=== PATIENT | male | born 1970 | race Caucasian/White ===

== ENCOUNTER 2020-12-22 23:47 | Inpatient (IN) | payer OTHER ==
[2020-12-23] MEDS ORDERED: Multivitamins, Adult 10 ML, Thiamine HCl 100 MG, Folic Acid 1 MG in Dextrose 5 %-0.45 %... IV SCH (01:00)
[2020-12-23] MEDS ORDERED: Lorazepam 2 MG/ML VIAL ONE (01:07)
[2020-12-23 01:25] LABS: Mean Corpuscular Volume 83.5 fL (78.0-98.0)
[2020-12-23 01:36] LABS: #Basophils 0.1 thou/uL (0.0-0.2); #Monocytes 0.6 thou/uL (0.11-0.59); #Neutrophils 5.4 thou/uL (1.40-6.50); %Basophils 0.8 % (0.0-1.0); %Eosinophils 0.3 % (0.0-10.0); %Lymphocytes 24.5 % (21.0-51.0); %Monocytes 7.9 % (0.0-10.0); %Neutrophils 66.6 % (42.0-75.0); Hemoglobin 12.8 g/dL (14.0-18.0); Mean Corpuscular HGB CONC 32.7 g/dL (32.0-36.0); Mean Corpuscular Hemoglobin 27.3 pg (27.0-31.0); Mean Platelet Volume 9.8 fL (7.4-10.4); Platelet Count 89 thou/uL (130-400); Platelet Morphology Comment Appears Decreased; RBC Distribution Width 18.9 % (11.5-14.5); Red Blood Cell (RBC) Count 4.67 mill/uL (4.70-6.10); White Blood Cell (WBC) Count 8.1 thou/uL (4.8-10.8)
[2020-12-23] MEDS ORDERED: Morphine 4 MG/ML VIAL ONE (01:41)
[2020-12-23] MEDS ORDERED: Ondansetron PF 4 MG/2 ML Vial ONE ×2 (01:41→09:55)
[2020-12-23] MEDS ORDERED: Ondansetron PF 4 MG/2 ML Vial IVP PRN ×2 (01:41→06:19)
[2020-12-23] MEDS ORDERED: Dextrose 50% Abboject 50 ML SYRINGE SLOW IVP PRN ×2 (01:41→06:19)
[2020-12-23] MEDS ORDERED: hydrALAZINE 20 MG/ML VIAL SLOW IVP PRN ×2 (01:41→06:19)
[2020-12-23] MEDS ORDERED: Dextrose 5% in Water 1,000 ML IV PRN ×2 (01:41→06:19)
[2020-12-23 01:43] LABS: ALT (SGPT) 48 U/L (8-55); AST (SGOT) 70 U/L (5-34); Albumin 3.8 g/dL (3.5-5.0); Alkaline Phosphatase 125 U/L (40-110); Anion Gap 19 mmol/L (10-20); BUN (Urea Nitrogen) 14 mg/dL (8.4-25.7); Bilirubin, Total 0.5 mg/dL (0.2-1.2); Calc. Creatinine Clearance 0 mL/min (70-130); Calcium 7.9 mg/dL (7.8-10.44); Carbon Dioxide 19 mmol/L (22-29); Chloride 112 mmol/L (98-107); Globulin 2.9 g/dL (2.4-3.5); Glucose 126 mg/dL (70-105); Protein, Total 6.7 g/dL (6.0-8.3); Sodium 146 mmol/L (136-145)
[2020-12-23] MEDS ORDERED: Morphine 2 MG/ML VIAL SLOW IVP PRN ×2 (01:47→06:21)
[2020-12-23] MEDS ORDERED: traMADol HCl 50 MG TAB PO PRN ×2 (01:47→06:20)
[2020-12-23] MEDS ORDERED: Ampicillin/Sulbactam 3 GM in Sodium Chloride 0.9% 100 ML IVPB SCH (02:00)
[2020-12-23] MEDS ORDERED: Multivitamins, Adult 10 ML, Folic Acid 1 MG, Thiamine HCl 100 MG in Dextrose 5 %-0.45 %... IV SCH (02:00)
[2020-12-23] MEDS ORDERED: Lidocaine 1% (PF) 30 ML VIAL ONE (02:36)
[2020-12-23] MEDS ORDERED: Boostrix 0.5 ML (Tdap) VIAL ONE (03:19)
[2020-12-23 03:51] LABS: SARS-CoV-2 NAA Rapid Test Not Detected (NotDetected)
[2020-12-23] MEDS ORDERED: Ibuprofen 600 MG TAB PO SCH ×3 (06:00→14:00)
[2020-12-23] MEDS ORDERED: traMADol HCl 50 MG TAB PO SCH ×2 (06:00→06:30)
[2020-12-23] MEDS ORDERED: Oxazepam 10 MG CAP PO SCH ×2 (06:00→06:30)
[2020-12-23 06:21] LABS: #Monocytes 0.3 thou/uL (0.11-0.59); #Neutrophils 1.9 thou/uL (1.40-6.50); %Basophils 0.8 % (0.0-1.0); %Eosinophils 0.5 % (0.0-10.0); %Monocytes 10.4 % (0.0-10.0); %Neutrophils 57.4 % (42.0-75.0); Hemoglobin 11.2 g/dL (14.0-18.0); Mean Corpuscular HGB CONC 33.3 g/dL (32.0-36.0); Mean Corpuscular Hemoglobin 27.3 pg (27.0-31.0); Mean Corpuscular Volume 82.1 fL (78.0-98.0); Mean Platelet Volume 9.4 fL (7.4-10.4); Platelet Count 65 thou/uL (130-400); RBC Distribution Width 18.4 % (11.5-14.5); Red Blood Cell (RBC) Count 4.11 mill/uL (4.70-6.10); White Blood Cell (WBC) Count 3.3 thou/uL (4.8-10.8)
[2020-12-23 06:26] LABS: INR-International Normal Ratio 1.2; PTT 25.7 sec (22.9-36.1); Prothrombin Time 15.6 sec (12.0-14.7)
[2020-12-23 06:34] VITALS: BMI 34.5
[2020-12-23 06:39] LABS: ALT (SGPT) 41 U/L (8-55); AST (SGOT) 55 U/L (5-34); Albumin 3.4 g/dL (3.5-5.0); Alkaline Phosphatase 97 U/L (40-110); Anion Gap 14 mmol/L (10-20); BUN (Urea Nitrogen) 12 mg/dL (8.4-25.7); Bilirubin, Total 0.5 mg/dL (0.2-1.2); Calc. Creatinine Clearance 199 mL/min (70-130); Calcium 7.3 mg/dL (7.8-10.44); Carbon Dioxide 22 mmol/L (22-29); Chloride 111 mmol/L (98-107); Globulin 2.6 g/dL (2.4-3.5); Glucose 165 mg/dL (70-105); Potassium 3.3 mmol/L (3.5-5.1); Sodium 144 mmol/L (136-145)
[2020-12-23] MEDS: Folic Acid 1 MG TAB PO SCH (08:53)
[2020-12-23] MEDS: Thiamine 100 MG TAB PO SCH (08:54)
[2020-12-23] MEDS: Gabapentin 100 MG CAP PO SCH ×3 (08:54→21:08)
[2020-12-23] MEDS ORDERED: Pantoprazole 40 MG VIAL IVP SCH ×2 (09:00)
[2020-12-23] MEDS ORDERED: Famotidine/PF 20 mg/2ml Vial SLOW IVP SCH (09:00)
[2020-12-23] MEDS ORDERED: Thiamine 100 MG TAB PO SCH (09:00)
[2020-12-23] MEDS ORDERED: Folic Acid 1 MG TAB PO SCH (09:00)
[2020-12-23] MEDS ORDERED: Gabapentin 100 MG CAP PO SCH (09:00)
[2020-12-23] MEDS ORDERED: CEFAZOLIN 2 GM in Premix Bag 1 BAG IVPB SCH (09:00)
[2020-12-23] MEDS ORDERED: Fentanyl 100 MCG/2 ML VIAL ONE (09:42)
[2020-12-23] MEDS ORDERED: Midazolam HCl 2 mg/2 ml Vial ONE (09:42)
[2020-12-23] MEDS ORDERED: Lidocaine 1% PF 5 ML VIAL ONE (09:55)
[2020-12-23] MEDS ORDERED: ePHEDrine 50 MG/ML VIAL ONE ×2 (09:55)
[2020-12-23] MEDS ORDERED: Rocuronium Bromide 10 MG/ML (10ML VIAL) ONE (09:55)
[2020-12-23] MEDS ORDERED: Ketorolac Tromethamine 30 MG/ML VIAL ONE (09:55)
[2020-12-23] MEDS ORDERED: Dexamethasone 20 MG/5 ML VIAL ONE (09:55)
[2020-12-23] MEDS ORDERED: PROPOFOL 200 MG/20 ML VIAL ONE (09:55)
[2020-12-23] MEDS ORDERED: HYDROmorphone 2 MG/ML VIAL ONE (11:13)
[2020-12-23] MEDS ORDERED: SUGAMMADEX SODIUM 200 MG/2 ML VIAL ONE (11:43)
[2020-12-23] MEDS: traMADol HCl 50 MG TAB PO SCH ×2 (12:00→18:32)
[2020-12-23] MEDS: Oxazepam 10 MG CAP PO SCH ×2 (12:00→18:34)
[2020-12-23] MEDS ORDERED: Ondansetron HCl/PF 4 MG/2 ML Vial IVP PRN (12:17)
[2020-12-23] MEDS ORDERED: Promethazine HCl 25 MG/ML VIAL SLOW IVP PRN (12:17)
[2020-12-23] MEDS ORDERED: Promethazine HCl 25 MG/ML VIAL IM PRN (12:17)
[2020-12-23] MEDS ORDERED: HYDROmorphone 2 MG/ML VIAL SLOW IVP PRN (12:17)
[2020-12-23] MEDS ORDERED: Potassium Phosphate 30 MMOL in Sodium Chloride 0.9% 500 ML IVPB SCH (13:45)
[2020-12-23] MEDS: Acetaminophen 325 MG TAB PO SCH ×2 (14:46→21:08)
[2020-12-23] MEDS: CEFAZOLIN 2 GM in Premix Bag 1 BAG IVPB SCH (18:28)
[2020-12-23] MEDS: Ibuprofen 600 MG TAB PO SCH (18:33)
[2020-12-23 19:54] LABS: Bilirubin Negative (Negative); Blood, Urine Trace (Negative); Glucose, Urine (Dipstick) 500 mg/dL (Negative); Ketone, Urine 40 mg/dL (Negative); Leukocyte Negative (Negative); Nitrite Negative (Negative); Protein, Urine (Dipstick) Negative (Neg-Trace)
[2020-12-23 19:55] LABS: Clarity Hazy (Clear)
[2020-12-23 19:56] LABS: Specific Gravity, Urine 1.029 (1.002-1.036)
[2020-12-23 20:09] LABS: Bacteria/HPF None Seen HPF (None Seen); RBC/HPF 0-3 HPF (0-3); Squamous Epithelial 0-3 HPF (0-3)
[2020-12-23 20:10] LABS: Urine Culture Reflex Yes Yes
[2020-12-24] MEDS: Oxazepam 10 MG CAP PO SCH ×5 (00:18→23:40)
[2020-12-24] MEDS: Ibuprofen 600 MG TAB PO SCH ×2 (00:18→06:19)
[2020-12-24] MEDS: traMADol HCl 50 MG TAB PO SCH ×5 (00:19→23:40)
[2020-12-24] MEDS: CEFAZOLIN 2 GM in Premix Bag 1 BAG IVPB SCH (00:20)
[2020-12-24 06:00] LABS: #Lymphocytes 0.4 thou/uL (1.20-3.40); #Monocytes 0.2 thou/uL (0.11-0.59); #Neutrophils 1.8 thou/uL (1.40-6.50); %Eosinophils 0.2 % (0.0-10.0); %Lymphocytes 17.9 % (21.0-51.0); %Monocytes 9.4 % (0.0-10.0); %Neutrophils 72.5 % (42.0-75.0); Hemoglobin 10.5 g/dL (14.0-18.0); Mean Corpuscular HGB CONC 32.5 g/dL (32.0-36.0); Mean Corpuscular Hemoglobin 27.2 pg (27.0-31.0); Mean Corpuscular Volume 83.9 fL (78.0-98.0); Mean Platelet Volume 9.7 fL (7.4-10.4); Platelet Count 50 thou/uL (130-400); RBC Distribution Width 18.7 % (11.5-14.5); Red Blood Cell (RBC) Count 3.86 mill/uL (4.70-6.10); White Blood Cell (WBC) Count 2.4 thou/uL (4.8-10.8)
[2020-12-24] MEDS: Acetaminophen 325 MG TAB PO SCH ×3 (06:17→21:37)
[2020-12-24 06:19] LABS: Anion Gap 10 mmol/L (10-20); BUN (Urea Nitrogen) 11 mg/dL (8.4-25.7); Calc. Creatinine Clearance 179 mL/min (70-130); Calcium 7.1 mg/dL (7.8-10.44); Carbon Dioxide 26 mmol/L (22-29); Chloride 105 mmol/L (98-107); Glucose 293 mg/dL (70-105); Potassium 4.1 mmol/L (3.5-5.1); Sodium 137 mmol/L (136-145)
[2020-12-24 06:23] LABS: Phosphorus 1.8 mg/dL (2.3-4.7)
[2020-12-24] MEDS ORDERED: traMADol HCl 50 MG TAB PO PRN ×3 (07:29→09:22)
[2020-12-24] MEDS ORDERED: Sodium Phosphate 30 MMOL in Sodium Chloride 0.9% 250 ML 250 ML IVPB SCH (07:30)
[2020-12-24] MEDS ORDERED: traMADol HCl 50 MG TAB PO SCH (08:00)
[2020-12-24] MEDS ORDERED: Lisinopril 20 MG TAB PO SCH (09:00)
[2020-12-24] MEDS: Gabapentin 100 MG CAP PO SCH ×4 (09:00→21:36)
[2020-12-24] MEDS: Thiamine 100 MG TAB PO SCH (09:01)
[2020-12-24] MEDS: Folic Acid 1 MG TAB PO SCH (09:01)
[2020-12-24] MEDS: Lisinopril 20 MG TAB PO SCH ×2 (09:01→21:37)
[2020-12-24] MEDS ORDERED: Cyclobenzaprine 10 MG TAB PO PRN (09:24)
[2020-12-24] MEDS ORDERED: Cyclobenzaprine 10 MG TAB PO SCH (21:00)
[2020-12-25] MEDS: traMADol HCl 50 MG TAB PO SCH ×4 (06:02→23:05)
[2020-12-25] MEDS: Acetaminophen 325 MG TAB PO SCH ×3 (06:03→23:06)
[2020-12-25] MEDS: Oxazepam 10 MG CAP PO SCH ×4 (06:05→23:06)
[2020-12-25 06:11] LABS: #Lymphocytes 0.8 thou/uL (1.20-3.40); #Monocytes 0.3 thou/uL (0.11-0.59); #Neutrophils 1.1 thou/uL (1.40-6.50); %Basophils 0.4 % (0.0-1.0); %Eosinophils 0.9 % (0.0-10.0); %Lymphocytes 35.3 % (21.0-51.0); %Monocytes 13.3 % (0.0-10.0); %Neutrophils 50.1 % (42.0-75.0); Hemoglobin 9.7 g/dL (14.0-18.0); Mean Corpuscular HGB CONC 32.4 g/dL (32.0-36.0); Mean Corpuscular Hemoglobin 27.6 pg (27.0-31.0); Mean Platelet Volume 9.4 fL (7.4-10.4); Platelet Count 54 thou/uL (130-400); RBC Distribution Width 18.8 % (11.5-14.5); Red Blood Cell (RBC) Count 3.52 mill/uL (4.70-6.10); White Blood Cell (WBC) Count 2.2 thou/uL (4.8-10.8)
[2020-12-25] MEDS ORDERED: Cyclobenzaprine 10 MG TAB PO PRN (09:00)
[2020-12-25] MEDS: Lisinopril 20 MG TAB PO SCH ×2 (09:08→20:11)
[2020-12-25] MEDS: Gabapentin 100 MG CAP PO SCH ×3 (09:08→20:11)
[2020-12-25] MEDS: Thiamine 100 MG TAB PO SCH (09:09)
[2020-12-25] MEDS: Folic Acid 1 MG TAB PO SCH (09:09)
[2020-12-25] MEDS: DULoxetine 30 MG CAP PO SCH (09:09)
[2020-12-26] MEDS: Acetaminophen 325 MG TAB PO SCH ×2 (05:38→14:49)
[2020-12-26] MEDS: traMADol HCl 50 MG TAB PO SCH ×3 (05:38→17:35)
[2020-12-26] MEDS: Oxazepam 10 MG CAP PO SCH ×3 (05:39→17:36)
[2020-12-26] MEDS ORDERED: Ferrous Sulfate 325 MG TAB PO SCH (08:00)
[2020-12-26] MEDS ORDERED: Ascorbic Acid 500 mg Chewable Tablet PO SCH (08:00)
[2020-12-26] MEDS: Lisinopril 20 MG TAB PO SCH (08:04)
[2020-12-26] MEDS: DULoxetine 30 MG CAP PO SCH (08:04)
[2020-12-26] MEDS: Gabapentin 100 MG CAP PO SCH ×2 (08:04→14:48)
[2020-12-26] MEDS: Folic Acid 1 MG TAB PO SCH (08:05)
[2020-12-26] MEDS: Thiamine 100 MG TAB PO SCH (08:05)
[2020-12-26] MEDS ORDERED: Gabapentin 300 MG CAP PO SCH ×2 (15:00→21:00)
[2020-12-26] MEDS ORDERED: Gabapentin 100 MG CAP PO SCH (15:15)
[2020-12-26 15:43] VITALS: BP 136/79; TEMP 98.2
== END 2020-12-26 18:30 | disposition home or self-care (01) | DRG 493 ==
LOC: ERS 23:47 → SURG B 12-23 01:54 → ERS 12-23 04:57
PROVIDERS: ADMIT Specialist; ATTEND Specialist
PROC: 0QSG04Z Reposition Right Tibia with Internal Fixation Device, Open Approach (ICD-10-PCS; principal; 2020-12-23)
DX: S82.191A Other fracture of upper end of right tibia, initial encounter for closed fracture (principal); S02.40DA Maxillary fracture, left side, initial encounter for closed fracture; S02.40FA Zygomatic fracture, left side, initial encounter for closed fracture; Z20.822 Contact with and (suspected) exposure to COVID-19; I10 Essential (primary) hypertension; F10.229 Alcohol dependence with intoxication, unspecified; F17.210 Nicotine dependence, cigarettes, uncomplicated; Y04.0XXA Assault by unarmed brawl or fight, initial encounter; K21.9 Gastro-esophageal reflux disease without esophagitis; J34.2 Deviated nasal septum; K01.1 Impacted teeth; D69.6 Thrombocytopenia, unspecified; D72.819 Decreased white blood cell count, unspecified; Z79.899 Other long term (current) drug therapy
CPT/HCPCS: 12011; 29505; 36415; 70450; 70486; 71045; 76000; 80048; 80053; 81001; 83735; 84100; 85025; 85610; 85730; 86850; 86900; 86901; 87086; 90471; 90715; 93005; 96365; 96366; 96368; 96374; 96375; C1713; G0390; J0295; J0690; J1100; J1170; J1885; J2001; J2060; J2250; J2270; J2405; J2704; J3010; J3411; J3490; J7030; J7042; J7050; U0002

== ENCOUNTER 2021-03-23 19:22 | Inpatient (IN) | payer OTHER ==
[~2021-03-23 19:22] MED LIST: Iopamidol-370 76% 500 ML 1 ML ONE
[2021-03-23] MEDS ORDERED: Pantoprazole 40 MG VIAL ONE (19:59)
[2021-03-23] MEDS ORDERED: Octreotide Acetate 50 MCG/ML AMP ONE (19:59)
[2021-03-23] MEDS ORDERED: Octreotide Acetate 1,250 MCG in Sodium Chloride 0.9% 250 ML 250 ML IVPB SCH (20:30)
[2021-03-23 20:51] LABS: PTT 25.1 sec (22.9-36.1); Prothrombin Time 13.7 sec (12.0-14.7)
[2021-03-23 21:01] LABS: Acetaminophen Less than 6.0 mcg/mL (10.0-30.0); Alcohol 303 mg/dL (Less than 10); Salicylate Less than 8.0 mg/dL (15.0-30.0)
[2021-03-23 21:02] LABS: ALT (SGPT) 33 U/L (8-55); AST (SGOT) 39 U/L (5-34); Albumin 4.2 g/dL (3.5-5.0); Alkaline Phosphatase 238 U/L (40-110); Anion Gap 18 mmol/L (10-20); BUN (Urea Nitrogen) 10 mg/dL (8.4-25.7); Bilirubin, Total 0.4 mg/dL (0.2-1.2); Calc. Creatinine Clearance 0 mL/min (70-130); Calcium 8.1 mg/dL (7.8-10.44); Carbon Dioxide 20 mmol/L (22-29); Chloride 108 mmol/L (98-107); Globulin 3.2 g/dL (2.4-3.5); Glucose 111 mg/dL (70-105); Lipase 91 U/L (8-78); Potassium 3.6 mmol/L (3.5-5.1); Protein, Total 7.4 g/dL (6.0-8.3); Sodium 142 mmol/L (136-145)
[2021-03-23 21:07] LABS: #Eosinphils 0.1 thou/uL (0.0-0.7); #Lymphocytes 2.5 thou/uL (1.20-3.40); #Monocytes 0.4 thou/uL (0.11-0.59); #Neutrophils 2.4 thou/uL (1.40-6.50); %Basophils 0.7 % (0.0-1.0); %Eosinophils 1.6 % (0.0-10.0); %Lymphocytes 47.1 % (21.0-51.0); %Monocytes 6.6 % (0.0-10.0); %Neutrophils 43.9 % (42.0-75.0); Mean Corpuscular HGB CONC 33.3 g/dL (32.0-36.0); Mean Corpuscular Hemoglobin 26.9 pg (27.0-31.0); Mean Corpuscular Volume 80.9 fL (78.0-98.0); Mean Platelet Volume 9.1 fL (7.4-10.4); Platelet Count 108 thou/uL (130-400); Platelet Morphology Comment Appears Decreased; RBC Distribution Width 17.1 % (11.5-14.5); Red Blood Cell (RBC) Count 5.19 mill/uL (4.70-6.10); White Blood Cell (WBC) Count 5.4 thou/uL (4.8-10.8)
[2021-03-23 21:28] LABS: Bilirubin Negative (Negative); Blood, Urine Negative (Negative); Clarity Clear (Clear); Glucose, Urine (Dipstick) Normal (Negative); Ketone, Urine Negative (Negative); Leukocyte Negative Leu/uL (Negative); Nitrite Negative (Negative); Protein, Urine (Dipstick) Negative (Neg-Trace); Specific Gravity, Urine 1.007 (1.002-1.036); Urobilinogen Normal mg/dL (Less than 2)
[2021-03-23 21:40] LABS: Amphetamine Not Detected (NotDetected); Barbiturates Screen Not Detected (NotDetected); Benzodiazepine Screen Not Detected (NotDetected); Cocaine Metabolite Screen Not Detected (NotDetected); Medtox Control Line Valid? VALID (VALID); Medtox Reader # READER 1; Methadone Not Detected (NotDetected); Methamphetamine Not Detected (NotDetected); Opiate Screen Not Detected (NotDetected); Oxycodone Screen Not Detected (NotDetected); Phencyclidine (PCP) Not Detected (NotDetected); THC/Cannabinoid Screen Not Detected (NotDetected); Tricyclic Screen Not Detected (NotDetected)
[2021-03-23] MEDS ORDERED: Multivitamins, Adult 10 ML, Thiamine HCl 100 MG, Folic Acid 1 MG in Dextrose 5 %-0.45 %... IV SCH (21:45)
[2021-03-23] MEDS ORDERED: Ondansetron ODT 4 MG TAB PO PRN (22:30)
[2021-03-23] MEDS ORDERED: Acetaminophen 325 MG TAB PO PRN (22:30)
[2021-03-23] MEDS ORDERED: Ondansetron PF 4 MG/2 ML Vial IVP PRN (22:30)
[2021-03-23] MEDS ORDERED: Diazepam 5 MG TAB PO PRN (22:39)
[2021-03-23] MEDS ORDERED: Diazepam 5 MG TAB PO SCH (22:45)
[2021-03-23 23:03] LABS: SARS-CoV-2 NAA Rapid Test Not Detected (NotDetected)
[2021-03-23 23:25] LABS: Anion Gap 19 mmol/L (10-20); BUN (Urea Nitrogen) 9 mg/dL (8.4-25.7); Calc. Creatinine Clearance 0 mL/min (70-130); Carbon Dioxide 19 mmol/L (22-29); Chloride 108 mmol/L (98-107); Glucose 100 mg/dL (70-105); Potassium 3.9 mmol/L (3.5-5.1); Sodium 142 mmol/L (136-145)
[2021-03-24 00:55] LABS: Hemoglobin 13.5 g/dL (14.0-18.0)
[2021-03-24 01:06] VITALS: BMI 34.5
[2021-03-24 05:05] LABS: Anisocytosis SLIGHT = 6-15 cells (100X) (0-5/hpf); Band 1 % (5-11); Eosinophils 1 % (0-10); Hemoglobin 12.7 g/dL (14.0-18.0); Lymphocytes 46 % (21-51); MDiff Complete? YES; Mean Corpuscular HGB CONC 32.7 g/dL (32.0-36.0); Mean Corpuscular Hemoglobin 26.7 pg (27.0-31.0); Mean Corpuscular Volume 81.4 fL (78.0-98.0); Monocytes 10 % (0-10); Neutrophil 42 % (42-75); Platelet Count 91 thou/uL (130-400); Platelet Morphology Comment Appears Decreased; RBC Distribution Width 17.4 % (11.5-14.5); Red Blood Cell (RBC) Count 4.77 mill/uL (4.70-6.10); White Blood Cell (WBC) Count 3.9 thou/uL (4.8-10.8)
[2021-03-24] MEDS: Magnesium Oxide 400 MG TAB PO SCH (08:42)
[2021-03-24] MEDS: Pantoprazole 40 MG VIAL IVP SCH ×2 (08:42→21:02)
[2021-03-24] MEDS: Diazepam 5 MG TAB PO PRN (08:53)
[2021-03-24] MEDS ORDERED: Thiamine 100 MG TAB PO SCH (09:00)
[2021-03-24] MEDS ORDERED: Folic Acid 1 MG TAB PO SCH (09:00)
[2021-03-24] MEDS ORDERED: Multivitamin W/ Minerals 1 TAB PO SCH (09:00)
[2021-03-24] MEDS ORDERED: Lorazepam 2 MG/ML VIAL SLOW IVP SCH (11:45)
[2021-03-24] MEDS: Multivitamins, Adult 10 ML, Folic Acid 1 MG, Thiamine HCl 100 MG in Dextrose 5 %-0.45 %... IV SCH (12:55)
[2021-03-24] MEDS: cefTRIAXone\\ROCEPHIN 1 GM in Sodium Chloride 0.9% 100 ML IVPB SCH (12:55)
[2021-03-24] MEDS ORDERED: Amlodipine 5 MG TAB PO SCH (16:30)
[2021-03-24] MEDS: hydrALAZINE 20 MG/ML VIAL SLOW IVP PRN (21:01)
[2021-03-25 03:52] LABS: #Eosinphils 0.1 thou/uL (0.0-0.7); #Monocytes 0.3 thou/uL (0.11-0.59); %Basophils 0.8 % (0.0-1.0); %Eosinophils 4.2 % (0.0-10.0); %Lymphocytes 43.4 % (21.0-51.0); %Monocytes 10.8 % (0.0-10.0); %Neutrophils 40.9 % (42.0-75.0); Hemoglobin 13.1 g/dL (14.0-18.0); Mean Corpuscular HGB CONC 32.2 g/dL (32.0-36.0); Mean Corpuscular Hemoglobin 26.2 pg (27.0-31.0); Mean Corpuscular Volume 81.5 fL (78.0-98.0); Platelet Count 77 thou/uL (130-400); RBC Distribution Width 17.2 % (11.5-14.5); Red Blood Cell (RBC) Count 4.98 mill/uL (4.70-6.10); White Blood Cell (WBC) Count 2.4 thou/uL (4.8-10.8)
[2021-03-25 04:22] LABS: ALT (SGPT) 36 U/L (8-55); AST (SGOT) 37 U/L (5-34); Albumin 3.7 g/dL (3.5-5.0); Alkaline Phosphatase 172 U/L (40-110); Anion Gap 10 mmol/L (10-20); BUN (Urea Nitrogen) 6 mg/dL (8.4-25.7); Bilirubin, Total 0.9 mg/dL (0.2-1.2); Calc. Creatinine Clearance 175 mL/min (70-130); Calcium 8.9 mg/dL (7.8-10.44); Carbon Dioxide 26 mmol/L (22-29); Chloride 103 mmol/L (98-107); Globulin 3.1 g/dL (2.4-3.5); Glucose 150 mg/dL (70-105); Magnesium 1.8 mg/dL (1.6-2.6); Potassium 3.4 mmol/L (3.5-5.1); Protein, Total 6.8 g/dL (6.0-8.3); Sodium 136 mmol/L (136-145)
[2021-03-25] MEDS: Metoprolol Tartrate 25 MG TAB PO SCH ×3 (04:49→20:20)
[2021-03-25] MEDS ORDERED: PROPOFOL 200 MG/20 ML VIAL ONE (09:10)
[2021-03-25] MEDS ORDERED: Ondansetron HCl/PF 4 MG/2 ML Vial IVP PRN (09:32)
[2021-03-25] MEDS: Amlodipine 5 MG TAB PO SCH (10:08)
[2021-03-25] MEDS: Magnesium Oxide 400 MG TAB PO SCH (10:09)
[2021-03-25] MEDS: Pantoprazole 40 MG VIAL IVP SCH (10:10)
[2021-03-25] MEDS: Multivitamins, Adult 10 ML, Folic Acid 1 MG, Thiamine HCl 100 MG in Dextrose 5 %-0.45 %... IV SCH (10:33)
[2021-03-25] MEDS: cefTRIAXone\\ROCEPHIN 1 GM in Sodium Chloride 0.9% 100 ML IVPB SCH (11:28)
[2021-03-25] MEDS: Potassium Chloride 20 MEQ in Premix Bag 1 BAG IVPB SCH ×2 (11:28→14:23)
[2021-03-25] MEDS: hydrALAZINE 20 MG/ML VIAL SLOW IVP PRN (14:22)
[2021-03-25] MEDS: Diazepam 5 MG TAB PO PRN (17:37)
[2021-03-25] MEDS ORDERED: Nadolol 40 MG TAB PO SCH (21:00)
[2021-03-26 05:40] LABS: #Basophils 0.1 thou/uL (0.0-0.2); #Eosinphils 0.1 thou/uL (0.0-0.7); #Lymphocytes 1.4 thou/uL (1.20-3.40); #Monocytes 0.4 thou/uL (0.11-0.59); #Neutrophils 1.9 thou/uL (1.40-6.50); %Basophils 1.6 % (0.0-1.0); %Eosinophils 3.6 % (0.0-10.0); %Lymphocytes 35.4 % (21.0-51.0); %Monocytes 11.4 % (0.0-10.0); %Neutrophils 48.1 % (42.0-75.0); Hemoglobin 13.5 g/dL (14.0-18.0); Mean Corpuscular HGB CONC 32.9 g/dL (32.0-36.0); Mean Corpuscular Hemoglobin 27.3 pg (27.0-31.0); Mean Corpuscular Volume 82.9 fL (78.0-98.0); Mean Platelet Volume 9.7 fL (7.4-10.4); Platelet Count 82 thou/uL (130-400); RBC Distribution Width 17.9 % (11.5-14.5); Red Blood Cell (RBC) Count 4.97 mill/uL (4.70-6.10); White Blood Cell (WBC) Count 3.9 thou/uL (4.8-10.8)
[2021-03-26 05:41] LABS: Anion Gap 11 mmol/L (10-20); BUN (Urea Nitrogen) 12 mg/dL (8.4-25.7); Calc. Creatinine Clearance 172 mL/min (70-130); Calcium 8.9 mg/dL (7.8-10.44); Carbon Dioxide 24 mmol/L (22-29); Chloride 105 mmol/L (98-107); Glucose 129 mg/dL (70-105); Potassium 3.8 mmol/L (3.5-5.1); Sodium 136 mmol/L (136-145)
[2021-03-26] MEDS: Metoprolol Tartrate 25 MG TAB PO SCH (08:01)
[2021-03-26] MEDS: Amlodipine 5 MG TAB PO SCH (08:01)
[2021-03-26] MEDS: Magnesium Oxide 400 MG TAB PO SCH (08:02)
[2021-03-26] MEDS: Multivitamins, Adult 10 ML, Folic Acid 1 MG, Thiamine HCl 100 MG in Dextrose 5 %-0.45 %... IV SCH (10:43)
[2021-03-26 11:35] VITALS: BP 135/80; TEMP 97.5
== END 2021-03-26 13:45 | disposition home or self-care (01) | DRG 432 ==
LOC: ERS 19:22 → IMCU/EMU 22:19 → SURG A 03-25 13:54
PROVIDERS: ADMIT Student in an Organized Health Care Education/Training Program; ATTEND Internal Medicine
PROC: 0DJ08ZZ Inspection of Upper Intestinal Tract, Via Natural or Artificial Opening Endoscopic (ICD-10-PCS; principal; 2021-03-25)
DX: K70.30 Alcoholic cirrhosis of liver without ascites (principal); K22.11 Ulcer of esophagus with bleeding; I85.11 Secondary esophageal varices with bleeding; R45.851 Suicidal ideations; F10.129 Alcohol abuse with intoxication, unspecified; K70.10 Alcoholic hepatitis without ascites; I10 Essential (primary) hypertension; M79.604 Pain in right leg; D69.59 Other secondary thrombocytopenia; Y90.8 Blood alcohol level of 240 mg/100 ml or more; Z20.822 Contact with and (suspected) exposure to COVID-19
CPT/HCPCS: 36415; 74177; 80048; 80053; 80306; 80307; 81003; 83690; 83735; 85025; 85610; 85730; 86850; 86900; 86901; 90471; 90732; 93005; 96365; 96366; 96375; C9113; G0009; J0360; J0696; J2060; J2354; J2704; J3411; J3475; J3480; J3490; J7042; J7050; Q9967; U0002; U0005